=== PATIENT | female | born 1965 | race Caucasian/White ===

== ENCOUNTER → 2016-12-30 | Outpatient (CLI) | payer OTHER, SELFPAY | LOC: EMI 15:15 | DX: M54.16 Radiculopathy, lumbar region (principal); M51.37 Other intervertebral disc degeneration, lumbosacral region | CPT/HCPCS: 72148 ==

== ENCOUNTER 2017-02-13 14:57 | Emergency (ER) | payer OTHER | END 2017-02-13 17:20 | disposition home or self-care (01) | LOC: ER1 14:57 | DX: S76.011A Strain of muscle, fascia and tendon of right hip, initial encounter (principal); I10 Essential (primary) hypertension; Z88.1 Allergy status to other antibiotic agents; V49.9XXA Car occupant (driver) (passenger) injured in unspecified traffic accident, initial encounter; Y93.89 Activity, other specified; Y92.410 Unspecified street and highway as the place of occurrence of the external cause | CPT/HCPCS: 73502; 73552; 99284 ==

== ENCOUNTER → 2017-03-03 | Outpatient (CLI) | payer OTHER, SELFPAY | LOC: LAB 14:04 → RAD 14:04 | DX: R09.02 Hypoxemia (principal); Z85.110 Personal history of malignant carcinoid tumor of bronchus and lung | CPT/HCPCS: 71020 ==